=== PATIENT | female | born 1990 | race African-American/Black ===

== ENCOUNTER → 2020-04-01 | Outpatient (CLI) | payer MEDICAID ==
--- NOTE | 2020-04-01 16:26 | REP ---
INDICATION: DATING . COMPARISON: None. TECHNIQUE: Transabdominal ultrasound performed FINDINGS: Uterus is anteverted and has a gestational sac in the fundus. Within at sac is a pole with a crown-rump length of 60.7 cm which corresponds to 6 weeks 4 days and an EDC 11/21/2020. heart activity noted at 1:24 BPM. Chest inferior to the gestational sac is 1.6 x 2.3 x 0.7 cm hypoechoic area suggesting a subchorionic bleed. No pelvic free fluid or visible adnexal mass. IMPRESSION: 1. Single intrauterine gestational with a gestational sac in the fundus and with a crown-rump length consistent with 6 weeks 4 days or EDC 11/21/2020. By LMP EDC 11/23/2020. 2. Heart rate 124. There is a subchorionic bleed the inferior to the sac measuring 2.3 x 1.6 x 0.7 cm. No other findings. <Electronically signed by Lawrence Dumont > 04/01/20 [id number]
== END ==
LOC: M RAD 15:16
PROVIDERS: ATTEND Nurse Practitioner Family
DX: Z32.01 Encounter for pregnancy test, result positive (principal); Z3A.01 Less than 8 weeks gestation of pregnancy; O20.9 Hemorrhage in early pregnancy, unspecified